=== PATIENT | male | born 1980 | race Caucasian/White ===

== ENCOUNTER 2023-08-19 16:59 | Emergency (ER) | payer SELFPAY ==
[2023-08-19 17:02] VITALS: BP 143/78; PULSE 98; RESP 16; TEMP 36.8; O2SAT 98; BMI 35.2
--- NOTE | 2023-08-19 17:13 | ED.RN ---
pt standing at door just talking and talking about nothing in particular.
--- NOTE | 2023-08-19 17:37 | EKG12_ITS ---
Test Reason : PLACEMENT Blood Pressure : / mmHG Vent. Rate : 082 BPM Atrial Rate : 082 BPM P-R Int : 146 ms QRS Dur : 098 ms QT Int : 378 ms P-R-T Axes : -11 -02 010 degrees QTc Int : 441 ms Normal sinus rhythm Normal ECG Confirmed by Raúl Lugo ([id number]), online content editor CONRADO CHANDLER ([id number]) on 08/20/2023 10:04:29 AM Referred By: Confirmed By:Raúl Lugo
--- NOTE | 2023-08-19 17:37 | CT_ITS ---
EXAM: CT HEAD WITHOUT INTRAVENOUS CONTRAST CLINICAL INDICATION: Change in Mental Status TECHNIQUE: Multiple axial images were obtained of the head without intravenous contrast. This CT exam was performed using one or more of the following dose reduction techniques: automated exposure control, adjustment of the mA and/or kV according to patient size, and/or use of iterative reconstruction technique. COMPARISON: No relevant prior studies available. FINDINGS: BRAIN AND EXTRA-AXIAL SPACES: Unremarkable. No intra- or extra-axial hemorrhage. No evidence of acute infarct. No intracranial mass or mass effect. There is preservation of the calero/white matter interface. Posterior fossa structures are unremarkable. Ventricles are appropriate for age. No hydrocephalus. Basal cisterns are patent. BONES/JOINTS: Unremarkable. No discrete lytic or blastic abnormalities. SINUSES: Unremarkable as visualized. Clear. MASTOID AIR CELLS: Unremarkable. Clear. ORBITS: Visualized globes, extraocular muscles, optic nerves and retrobulbar fat appear unremarkable. CT/Brain/Head without Contrast IMPRESSION: Negative head/brain CT without intravenous contrast. Electronically Signed: Stone Tong MD at 19:16 EDT ,
[2023-08-19] MEDS: DiphenhydrAMINE 50 MG/ML Syringe IM (17:48)
[2023-08-19] MEDS: Ziprasidone IM 20 MG/ML VIAL IM (17:48)
[2023-08-19] MEDS: LORazepam 2 MG/ML Syringe IM (17:49)
[2023-08-19 18:01] VITALS: BP 148/96; PULSE 68; RESP 16; O2SAT 98
--- NOTE | 2023-08-19 18:02 | EDS_ITS ---
HPI History of Present Illness Chief Complaint: Mental Health [facility] Medical History (Updated 08/19/23 @ 18:20 by Ugo Smith) Asthma Allergy/AdvReac Type Severity Reaction Status Date / Time avocado Allergy Severe Anaphylaxis Verified 08/19/23 17:08 Fish Containing Products Allergy Severe Anaphylaxis Verified 08/19/23 17:09 mushroom Allergy Severe Anaphylaxis Verified 08/19/23 17:09 carrot Allergy Intermediate Hives Verified 08/19/23 17:09 Social History Smoking Status: Never smoker EXAM Physical Exam Const Vital Signs: 08/19/23 17:02 08/19/23 18:01 08/19/23 19:00 Temperature 98.3 F Temperature Source Tympanic Pulse Rate 98 68 94 Respiratory Rate 16 16 16 Blood Pressure 143/78 H 148/96 H 132/111 H Blood Pressure Mean 99 113 118 Pulse Ox 98 98 98 Oxygen Delivery Method Room Air Room Air Room Air 08/19/23 20:00 08/19/23 21:00 08/19/23 22:17 Temperature Temperature Source Pulse Rate 78 81 81 Respiratory Rate 16 16 16 Blood Pressure 146/85 H 179/79 H 127/76 H Blood Pressure Mean 105 112 93 Pulse Ox 96 95 98 Oxygen Delivery Method Room Air Room Air Room Air MDM MDM MDM Narrative Medical decision making narrative: HISTORY OF PRESENT ILLNESS: 42-year-old male presents with manic behavior. Patient displays poor insight and denies being manic, denies any homicidal or suicidal ideation. Denies auditory visual hallucinations. Denies any cocaine or methamphetamine but notes smoking marijuana occasionally. Denies any new dealer or new source of marijuana. Denies any head trauma. Denies any physical complaints. Per his fianc?e the past 4 days he has not been behaving strangely, manic, he has not slept for 4 days per her. REVIEW OF SYSTEMS: Pertinent positives: Mario Pertinent negatives: Chest pain, drug use, headache PHYSICAL EXAM: Nursing triage notes reviewed, Vital signs reviewed Constitutional: please see mdm HENT: MMM Eyes: Pupils equal round and reactive to light, Extraocular muscles intact Neck: No stridor, no JVD, full neck ROM Lungs: Clear to auscultation, No wheezing or rales. No increased work of breathing, no conversational dyspnea, no accessory muscle use, no nasal flaring. No respiratory distress noted Heart: Regular rate and rhythm, No murmurs, No rubs and No gallops, 2+ distal pulses (radial, femoral, posterior tibial) in all extremities Abdomen: Soft, there is no tenderness, rigidity, rebound or guarding, no obvious peritoneal signs, no palpable pulsatile abdominal masses, no auscultated abdominal bruit : No CVAT Extremities: No edema Neuro: No focal neurological deficits, cranial nerves II through XII intact, 5/5 strength in all extremities. Intact sensation to light touch in all extremities, 2+ reflexes bilateral patella tendons. Normal gait. No ataxia. Skin: No rash or lesions noted MEDICAL DECISION MAKING: Chief Complaint: Mario External records reviewed: No recent psychiatric evaluations Factors affecting care: none Social determinants of health: Smokes marijuana History obtained from others: The patient's fianc? Consults: MDM Narrative: Patient was initially hemodynamically stable, afebrile and nontoxic-appearing. I considered the following differential diagnosis: ICH, electrolyte disturbance, drug intoxication, ALL IMAGES (IF OBTAINED) HAVE BEEN PERSONALLY REVIEWED AND INTERPRETED BY MYSELF. EKG with normal sinus rhythm, left ax deviation, normal intervals, no STEMI I have personally reviewed the patient's chest x-ray. Chest x-ray is unremarkable for pulmonary edema, pneumothorax, pneumonia or focal cardiopulmonary abnormality. CT head negative CBC without leukocytosis, severe anemia, no thrombocytopenia. BMP with mild hyponatremia, hypokalemia, no evidence of VENUS, endorgan hypoperfusion or metabolic acidosis CMP without evidence of acute kidney injury, significant electrolyte abnormality, anion gap, no evidence hepatobiliary pathology. TSH within normal limits Urinalysis shows no evidence of urinary inflammation suggestive of UTI The synthesis of the patient's history, physical exam, labs and images suggest likely psychiatric disturbance. No signs of organic pathology including ICH, significant electrolyte disturbances or metabolic disturbances. No signs of infectious etiologies. Patient was monitored in the emergency department initially with panel monitor after receiving Geodon, Ativan and Benadryl for agitation. He had a clear sensorium and continued to behave abnormally as such I consulted crisis our behavioral health specialist for ED evaluation for possible placement for inpatient psychiatry. Patient was signed out to p.m. physician pending crisis evaluation and disposition. The patient and/or family, caregivers express understanding. The patient and/or family, caregivers agrees with the plan. Shared decision making: I will have a discussion with the patient and or visitors regarding risk/benefits of further testing or admission. They will be made aware of of the risk/benefits inherent in this decision they will be given the opportunity to voice understanding. Total critical care time today provided was at least 0 minutes. This excludes separately billable procedures. Critical care time (if documented) is secondary to the patient having high probability of clinically significant/life threatening deterioration in the patient's condition which required my urgent intervention. Impression: 1. Acute mario 2. Abnormal behavior Dispo: Pending crisis evaluation and p.m. physician disposition. This note was generated with [employer] dictation software. It may contain incorrect words, spelling, and punctuation that were not noted in review of the chart prio r to signing. Lab Data Labs: Laboratory Results - last 24 hr 08/19/23 08/19/23 18:05 18:53 WBC 9.1 RBC 4.87 Hgb 14.1 Hct 41.7 MCV 85.6 MCH 29.0 MCHC 33.8 RDW Std Deviation 38.0 RDW Coeff of Paco 12.1 Plt Count 272 MPV 9.1 Immature Gran % (Auto) 0.600 Neut % (Auto) 83.0 H Lymph % (Auto) 9.9 L [place] % (Auto) 5.6 Eos % (Auto) 0.7 Baso % (Auto) 0.2 Absolute Neuts (auto) 7.5 Absolute Lymphs (auto) 0.90 Nucleated RBC % 0 Sodium 135 L Potassium 3.4 L Chloride 104 Carbon Dioxide 24.0 Anion Gap 7 BUN 7 Creatinine 1.08 Estim Creat Clear Calc 115.93 Est GFR (MDRD) Af Amer 96 Est GFR (MDRD) Non-Af 80 BUN/Creatinine Ratio 6.5 L Glucose 129 H Calcium 9.1 Total Bilirubin 0.50 AST 39 H ALT 51 Alkaline Phosphatase 67 Total Protein 7.8 Albumin 4.4 Globulin 3.4 Albumin/Globulin Ratio 1.3 TSH 0.96 Urine Color Yellow Urine Clarity Clear Urine pH 6.5 Ur Specific [place] 1.010 Urine Protein 15 H Urine Glucose (UA) Normal Urine Ketones Negative Urine Occult Blood Negative Urine Nitrite Negative Urine Bilirubin Negative Urine Urobilinogen Normal Ur Leukocyte Esterase Negative Urine RBC 0 SEEN Urine WBC 0 SEEN Ur Squamous Epith Cells 0 SEEN Urine Bacteria 0 SEEN Urine Mucus 0 SEEN Urine Opiates Screen NEGATIVE Urine Methadone Screen NEGATIVE Ur Barbiturates Screen NEGATIVE Ur Phencyclidine Scrn NEGATIVE Ur Amphetamines Screen NEGATIVE MDMA (Ecstasy) Screen NEGATIVE U Benzodiazepines Scrn NEGATIVE Urine Cocaine Screen NEGATIVE U Cannabinoids Screen POSITIVE H Ur Drug Screen Comment Ethyl Alcohol < 3.0 Radiography Diagnostic Testing: Clinical Impression(s) from Imaging Studies Brain CT 08/19/23 17:37 IMPRESSION: Negative head/brain CT without intravenous contrast. Electronically Signed: Stone Tong MD at 19:16 EDT , Chest X-Ray 08/19/23 18:15 IMPRESSION: No radiographic evidence of acute cardiopulmonary disease. Electronically Signed: Stone Tong MD at 19:18 EDT , Discharge Plan Triage Chief Complaint: Mental Health Other Complaint: Alt LOC ED Provider: Duane Naranjo Dx/Rx/DC Orders Primary Care Provider: Care Physician,No Primary Referrals: Care Physician,No Primary [Primary Care Provider] -
--- NOTE | 2023-08-19 18:15 | RAD_ITS ---
EXAM: XR CHEST, 1 VIEW CLINICAL INDICATION: AMS TECHNIQUE: Frontal view of the chest. COMPARISON: No relevant prior studies available. FINDINGS: LUNGS AND PLEURAL SPACES: Unremarkable. No consolidation or edema. No pneumothorax. No effusion. HEART: Unremarkable. Cardiac silhouette not enlarged. MEDIASTINUM: Central airways and mediastinal contour are unremarkable. BONES/JOINTS: Unremarkable. No acute fracture. SOFT TISSUES: Unremarkable. RAD/Chest 1 View (Portable) IMPRESSION: No radiographic evidence of acute cardiopulmonary disease. Electronically Signed: Stone Tong MD at 19:18 EDT ,
[2023-08-19 18:19] LABS: Absolute Neutrophil Count 7.5 X10^3/uL (2.0-7.7); Basophil# 0.02 X10^3/uL; Basophil% 0.2 % (0-1); Eosinophil# 0.06 X10^3/uL; Eosinophils% 0.7 % (0-5); Hematocrit 41.7 % (40-54); Hemoglobin 14.1 g/dL (13.0-16.5); Lymphocyte % 9.9 % (19-41); Mean Corp Hgb Conc 33.8 g/dL (32-36); Mean Corpuscular Volume 85.6 fL (80-94); Mean Platelet Vol. 9.1 fl (6.2-12.0); Monocyte# 0.51 X10^3/uL; Monocyte% 5.6 % (0-10); NRBC Flagged by Analyzer 0 % (0-5); Neutrophil # 7.54 X10^3/uL (2.7-7.7); Platelet Count 272 K/mm3 (150-450); RBC Distribution Width CV 12.1 % (11.6-14.6); Red Blood Count 4.87 M/mm3 (4.6-6.2); White Blood Count 9.1 K/mm3 (4.4-11.0)
[2023-08-19 19:00] VITALS: BP 132/111; PULSE 94; RESP 16; O2SAT 98
[2023-08-19 19:04] LABS: Alcohol, Blood (Medical)-Serum < 3.0 mg/dL
[2023-08-19 19:08] LABS: ALB/GLOB Ratio 1.3 RATIO (0.9-2.4); AST(SGOT) 39 U/L (15-37); Alanine Aminotransfer ALT/SGPT 51 U/L (16-61); Albumin, Serum 4.4 g/dL (3.2-5.0); Alkaline Phosphatase 67 U/L (45-117); Anion Gap 7 (5-15); BUN 7 mg/dL (7-18); BUN/Creat Ratio 6.5 RATIO (10-20); Calcium,Total 9.1 mg/dL (8.5-10.1); Chloride 104 mmol/L (98-107); Creatinine, Serum 1.08 mg/dL (0.70-1.30); EST Glomerular Filtration Rate 80 mL/min (>60); Est Glom Filt Rate - Afr Amer 96 mL/min (>60); Estimated Creatinine Clearance 115.93 ml/min; Globulin 3.4 g/dL (2.2-4.2); Glucose 129 mg/dL (74-106); Potassium 3.4 mmol/L (3.5-5.1); Protein, Total 7.8 g/dL (6.4-8.2); Sodium Level 135 mmol/L (136-145); Thyroid Stim Hormone (TSH) 0.96 uIU/mL (0.358-3.74)
[2023-08-19 19:10] LABS: Amphetamine Urine VISTA NEGATIVE (<1000 ng/mL); Barbiturate Urine VISTA NEGATIVE (< 200 ng/mL); Benzodiazepine Urine VISTA NEGATIVE (< 200 ng/mL); Cocaine Urine VISTA NEGATIVE (< 300 ng/mL); Ecstacy Urine VISTA NEGATIVE (< 500 ng/mL); Methadone Urine VISTA NEGATIVE (< 300 ng/mL); PCP Urine VISTA NEGATIVE (< 25 ng/mL); THC Urine VISTA POSITIVE (< 50 ng/mL); Vista UDS pH Range 5
[2023-08-19 19:51] LABS: Bacteria 0 SEEN /hpf (None Seen); Mucous, Urine 0 SEEN /hpf (<or=2+); Red Blood Cells-Urine 0 SEEN /hpf (0-5); Squamous Epithelial Cells - UA 0 SEEN /hpf (0-5); White Blood Cells 0 SEEN /hpf (0-5)
[2023-08-19 19:52] LABS: Color, Urine Yellow (Yellow); Glucose, Dipstick Normal (Normal); Ketone-Dipstick Negative (Negative); Leukocyte Esterase-Dipstick Negative /ul (Negative); Nitrite-Dipstick Negative (Negative); Occult Blood-Urine Negative /ul (Negative); Protein-Dipstick 15 mg/dl (Negative); Urine Bilirubin Dipstick Negative (Negative); Urine Clarity Clear (Clear); Urine Urobilinogen Normal (Normal); Urine pH 6.5 (5.0 - 8.0)
[2023-08-19 20:00] VITALS: BP 146/85; PULSE 78; RESP 16; O2SAT 96
[2023-08-19 21:00] VITALS: BP 179/79; PULSE 81; RESP 16; O2SAT 95
[2023-08-19 22:17] VITALS: BP 127/76; PULSE 81; RESP 16; O2SAT 98
[2023-08-20 00:52] VITALS: BP 134/87; PULSE 81; RESP 16; TEMP 36.1; O2SAT 99
== END 2023-08-20 00:55 | disposition home or self-care (01) ==
PROVIDERS: Emergency Provider Emergency Medicine; Visit Provider Emergency Medicine
DX: F30.9 Manic episode, unspecified (principal); F91.9 Conduct disorder, unspecified
CPT/HCPCS: 70450; 71045; 80053; 80307; 80320; 81001; 84443; 85025; 93005; 96372; 96374; 99283; G0480; J3486